=== PATIENT | male | born 1960 | race Caucasian/White ===

== ENCOUNTER → 2020-08-21 | Outpatient (CLI) | payer OTHER ==
[~2020-08-21] MED LIST: ASPIRIN325 PO; ATENOLOL 100MG100 MG PO; CENTRUM SILVER1 EAC4 PO; CRESTOR10 MG PO; ELIQUIS5 MG PO; FLECAINIDE ACET50 M1 PO; LEVOTHYROXINE 0.1 MG PO
== END ==
LOC: CAT 14:55
PROVIDERS: ATTEND Internal Medicine Cardiovascular Disease
DX: Z13.6 Encounter for screening for cardiovascular disorders (principal); I25.10 Atherosclerotic heart disease of native coronary artery without angina pectoris; E78.00 Pure hypercholesterolemia, unspecified